=== PATIENT | female | born 1995 | race Caucasian/White ===

== ENCOUNTER 2016-08-30 11:22 | Day surgery (SDC) | payer OTHER ==
[2016-08-25 12:15] LABS: ADD UMIC YES; URINE BILIRUBIN (Dip) NEGATIVE (NEGATIVE); URINE BLOOD (Dip) TRACE (NEGATIVE); URINE COLOR LT. YELLOW (YELLOW); URINE GLUCOSE (Dip) NEGATIVE (NEGATIVE); URINE KETONES (Dip) NEGATIVE (NEGATIVE); URINE LEUKOCYTE ESTERASE (Dip) NEGATIVE (NEGATIVE); URINE NITRITE (Dip) NEGATIVE (NEGATIVE); URINE TOTAL PROTEIN (Dip) NEGATIVE (NEGATIVE); URINE UROBILINOGEN (Dip) 0.2 E.U./dL (0.1-1.0)
[2016-08-25 12:19] LABS: BASOPHILS % 0.7 % (0.0-2.0); EOSINOPHILS # 0.2 10^3/ul (0.0-0.5); EOSINOPHILS % 2.1 % (0.0-7.0); HEMATOCRIT 40.9 % (37.0-47.0); HEMOGLOBIN 13.5 g/dl (12.0-16.0); LYMPHOCYTES # 2.4 10^3/ul (0.8-2.9); LYMPHOCYTES % 32.4 % (15.0-51.0); MEAN CORPUSCULAR HEMOGLOBIN 27.9 pg (29.0-33.0); MEAN CORPUSCULAR HGB CONC 33.1 g/dl (32.0-37.0); MEAN CORPUSCULAR VOLUME 84.3 fl (82.0-101.0); MEAN PLATELET VOLUME 7.7 fl (7.4-10.4); MONOCYTE # 0.6 10^3/ul (0.3-0.9); MONOCYTES % 7.4 % (0.0-11.0); NEUTROPHIL # 4.3 10^3/ul (1.6-7.5); NEUTROPHILS % 57.4 % (39.0-77.0); PLATELET COUNT 337 10^3/UL (140-440); RED BLOOD COUNT 4.85 10^6/ul (4.20-5.40); RED CELL DISTRIBUTION WIDTH 12.2 % (11.5-14.5); UNCORRECTED WBC 7.4 10^3/ul (4.8-10.8); WHITE BLOOD COUNT 7.4 10^3/ul (4.8-10.8)
[2016-08-25 12:23] LABS: CONDITION 1
[2016-08-25 12:27] LABS: ALBUMIN 4.1 g/dl (3.3-4.9); BACTERIA,URINE RARE; URINE RBCS 0-2 /HPF (0)
[2016-08-25 12:29] LABS: INR 0.91; PROTIME 12.3 Sec (12.2-14.2)
[2016-08-25 12:30] LABS: ALBUMIN/GLOBULIN RATIO 1.17; BILIRUBIN,INDIRECT 0.5 mg/dl (0-1.1); BILIRUBIN,TOTAL 0.5 mg/dl (0.2-1.3); PARTIAL THROMBOPLASTIN TIME 28.1 Sec (25.0-35.0); TOTAL PROTEIN 7.6 g/dl (6.1-8.1)
[2016-08-25 12:31] LABS: POTASSIUM 3.5 mmol/L (3.5-5.1)
[2016-08-25 12:32] LABS: CALCIUM 9.2 mg/dl (8.4-10.2); CREATININE 0.56 mg/dl (0.44-1.00)
[2016-08-29 10:34] VITALS: BMI 30.4
[2016-08-30] VITALS (8 sets, daily range): BP systolic 96–123; BP diastolic 51–87; PULSE 78–88; RESP 14–18; Ht 157.5 cm; Wt 70.0 kg
[~2016-08-30] VITALS: Ht 157.5 cm; Wt 70.0 kg
[~2016-08-30 11:22] MED LIST: CEFAZOLIN 1 GM INJ ONE; IBUP-725; LACTATED RINGER'S 1,000 ML IV SCH
[2016-08-30 12:17] LABS: BASOPHILS % 0.6 % (0.0-2.0); EOSINOPHILS # 0.2 10^3/ul (0.0-0.5); EOSINOPHILS % 3.3 % (0.0-7.0); HEMATOCRIT 40.1 % (37.0-47.0); HEMOGLOBIN 13.4 g/dl (12.0-16.0); LYMPHOCYTES # 2.3 10^3/ul (0.8-2.9); LYMPHOCYTES % 34.6 % (15.0-51.0); MEAN CORPUSCULAR HEMOGLOBIN 27.9 pg (29.0-33.0); MEAN CORPUSCULAR HGB CONC 33.3 g/dl (32.0-37.0); MEAN CORPUSCULAR VOLUME 83.8 fl (82.0-101.0); MEAN PLATELET VOLUME 7.6 fl (7.4-10.4); MONOCYTE # 0.5 10^3/ul (0.3-0.9); NEUTROPHIL # 3.6 10^3/ul (1.6-7.5); NEUTROPHILS % 54.5 % (39.0-77.0); PLATELET COUNT 336 10^3/UL (140-440); RED BLOOD COUNT 4.79 10^6/ul (4.20-5.40); RED CELL DISTRIBUTION WIDTH 12.9 % (11.5-14.5); UNCORRECTED WBC 6.6 10^3/ul (4.8-10.8); WHITE BLOOD COUNT 6.6 10^3/ul (4.8-10.8)
[2016-08-30 12:32] LABS: CONDITION 1
[2016-08-30] MEDS ORDERED: LIDOCAINE 2% (SDV) 5 ML INJ ONE (12:50)
[2016-08-30] MEDS ORDERED: PROPOFOL 40 ML ONE (12:50)
[2016-08-30] MEDS ORDERED: FENTAnyl 50 MCG/ML VIAL ONE ×2 (12:51→13:13)
[2016-08-30] MEDS ORDERED: MIDAZOLAM 1 MG/ML 2 ML INJ ONE (12:51)
[2016-08-30] MEDS ORDERED: DEXAMETHASONE 4 MG/ML 1 ML INJ ONE (12:54)
[2016-08-30] MEDS ORDERED: ONDANSETRON 4 MG INJ ONE (12:55)
[2016-08-30] MEDS ORDERED: KETOROLAC 30 MG INJ ONE (13:37)
--- NOTE | 2016-08-30 13:44 | PD.PPDC ---
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
[2016-08-30] MEDS ORDERED: hydrALAzine 20 MG INJ IV PRN (14:00)
[2016-08-30] MEDS ORDERED: ONDANSETRON 4 MG INJ IV PRN (14:00)
[2016-08-30] MEDS ORDERED: LABETALOL HCL 20MG INJ IV PRN (14:00)
[2016-08-30] MEDS ORDERED: OXYCODONE/ACETAMINOPHEN (5/325) TAB PO PRN ×2 (14:00)
[2016-08-30] MEDS ORDERED: FENTAnyl 50 MCG/ML VIAL IV PRN ×3 (14:00)
[2016-08-30] MEDS ORDERED: MEPERIDINE 25 MG INJ IV PRN (14:00)
--- NOTE | 2016-08-30 15:06 | OPR ---
DATE OF OPERATION: 08/30/2016 PREOPERATIVE DIAGNOSES: Vaginal wall cyst (right side), approximately 3 x 4 cm. POSTOPERATIVE DIAGNOSES: Vaginal wall cyst (right side), approximately 3 x 4 cm. PROCEDURE: Excision of the right vaginal wall cyst. SURGEON: Ledy Pindea MD ANESTHESIA: General. ANESTHESIOLOGIST: Dr. Ervin DETAILS OF THE PROCEDURE: Under satisfactory general anesthesia, the patient was prepped and draped and placed in dorsal lithotomy position. Bimanual pelvic exam normal marital introitus. Vagina wa s containing a cyst approximately 3 x 4 cm which the tip of the cyst was protruding through the vagi nal entrance, and the root of the cyst was very close to the right fornix next to the cervix. The b kelsey of the cyst grasped by Dar, and the cyst was completely excised from the vaginal wall and se nt for the pathology. The bed of the cyst was repaired with 2-0 Vicryl continuous suture. There wa s no bleeding from the site of the surgery. The patient tolerated procedure well and transferred to recovery room in good condition. Dictated By: LEDY CUNHA/NTS Conf#: [id number] DID#: [id number]
== END 2016-08-30 16:05 | disposition home or self-care (01) ==
LOC: SDS 11:22
PROVIDERS: ATTEND Obstetrics & Gynecology
DX: Q52.4 Other congenital malformations of vagina (principal)
CPT/HCPCS: 57135; 80053; 81001; 85025; 85610; 85730; 86850; 86900; 86901; 88305; J0690; J1100; J2250; J2405; J3010; Z7512; Z7610; 81003; J1885

== ENCOUNTER 2017-01-12 07:21 | Emergency (ER) | payer OTHER ==
[~2017-01-12] VITALS: Ht 154.9 cm; Wt 77.0 kg
[2017-01-12 07:23] VITALS: Ht 154.9 cm; Wt 77.0 kg
[2017-01-12] MEDS ORDERED: KETOROLAC 30 MG INJ IM STA (07:44)
[2017-01-12] MEDS ORDERED: DIAZEPAM 5 MG TAB PO ONE (08:00)
[2017-01-12] MEDS ORDERED: NAPR-260 PO (08:26)
[2017-01-12] MEDS ORDERED: CYCL-319 PO (08:26)
--- NOTE | 2017-01-12 08:41 | RADRPT ---
PROCEDURE: XR Lumbar Spine, 3 views. CLINICAL INDICATION: back pain TECHNIQUE: AP, lateral and cone-down lateral view of the lumbar spine were obtained. COMPARISON: No prior studies are available for comparison. FINDINGS: There is normal vertebral mineralization. There is straightening of lumbar lordosis.. No fracture or subluxation is seen. The disc spaces are normal in appearance. The posterior elements are unremarkable. The soft tissues appear normal. RPTAT: AA IMPRESSION: Straightening of lumbar lordosis. Physician Jovanna Date Time Electronically viewed and signed by Fernando Newberry Physician on 01/12/2017 08:40 RA/
--- NOTE | 2017-01-12 08:53 | ERD ---
ER Documentation Chief Complaint Date/Time DATE: 01/12/17 TIME: 08:51 Chief Complaint lower back pain x 2weeks got worse today HPI This is a 21-year-old female presenting to the emergency department complaining of lower back pain for the past 2 weeks which has worsened today. Patient rates the pain constant, severe with certain movements. Patient states that she has tried ibuprofen however it does not give her any relief, states that her last dose was about a week ago. Patient denies any saddle anesthesia, bladder or bowel incontinence. Denies urinary symptoms or hematuria ROS All systems reviewed and are negative except as per history of present illness. Medications Home Meds Active Scripts Cyclobenzaprine Hcl* (Cyclobenzaprine Hcl*) 10 Mg Tablet, 10 MG PO TID, #20 TAB Prov:DOUGLAS MARCUM PA-C 01/12/17 Naproxen* (Naprosyn*) 500 Mg Tablet, 500 MG PO BID Y for PAIN AND/OR INFLAMMATION, #30 TAB Prov:DOUGLAS MARCUM PA-C 01/12/17 Allergies Allergies: Coded Allergies: No Known Drug Allergies (Verified Allergy, Mild, 08/30/16) PMhx/Soc Medical and Surgical Hx: pt denies Surgical Hx History of Surgery: No Anesthesia Reaction: No Hx Neurological Disorder: No Hx Respiratory Disorders: No Hx Cardiac Disorders: No Hx Psychiatric Problems: No Hx Miscellaneous Medical Probl: Yes (lower back pain) Hx Alcohol Use: No Hx Substance Use: No Hx Tobacco Use: No Physical Exam Vitals Vital Signs Date Time Temp Pulse Resp B/P Pulse Ox O2 Delivery O2 Flow Rate FiO2 01/12/17 07:23 98.9 96 19 160/93 99 Physical Exam GENERAL: WD/WN, in no apparent distress, non-toxic appearing HENT: NC/AT EYES: Conjunctiva normal NECK: Supple PULM: Normal labored breathing CV: Good capillary refill GI: Non-distended, no guarding BACK: no deformities noted, normal spinal curvature, TTP on lumbar region, tender on spine midline, EXT: No clubbing, cyanosis, or edema NEURO: Moves on all fours, sensation intact, normal gait SKIN: intact PSYCH: Normal mood GENERAL: WD/WN, in no apparent distress, non-toxic appearing HENT: NC/AT EYES: Conjunctiva normal NECK: Supple PULM: Normal labored breathing CV: Good capillary refill GI: Non-distended, no guarding BACK: no deformities noted, normal spinal curvature, TTP on lumbar region, non- tender on spine midline, normal anal wink, [] straight leg raise EXT: No clubbing, cyanosis, or edema NEURO: Moves on all fours, sensation intact, normal gait SKIN: intact PSYCH: Normal mood Results 24 hrs Current Medications Medications (Trade) Dose Ordered Sig/Sheryl Route PRN Reason Start Time Stop Time Status Last Admin Dose Admin Diazepam (Valium) 5 mg ONCE ONCE PO 01/12/17 08:00 01/12/17 08:01 DC 01/12/17 08:01 Ketorolac Tromethamine (Toradol) 30 mg ONCE STAT IM 01/12/17 07:44 01/12/17 07:46 DC 01/12/17 08:02 Procedures/MDM 21-year-old female presents to the ER with lumbar back pain and muscle spasms, low suspicion for spinal abscess, vertebral fracture, cauda equina syndrome, spinal stenosis due to physical examination. Lumbar XRAY: Straightening of lumbar lordosis. This appears to be a postural issue and I believe the patient will really benefit from outpatient physical therapy. I discussed with her to follow-up with her primary care physician to get a referral for physical therapy. In the ED patient was given Toradol and Valium with some relief. Patient is neurovascularly intact and hematocele for discharge for home. Prescriptions naproxen and Flexeril was given to patient, discussed to return to the ED if not improving as expected or follow-up with a primary care physician. Patient understood and agreed with this plan. Departure Diagnosis: Primary Impression: Back pain Back pain location: low back pain Chronicity: acute Back pain laterality: midline Sciatica presence: without sciatica Qualified Code: M54.5 - Acute midline low back pain without sciatica Condition: Stable Patient Instructions: Back Pain (Acute Or Chronic), Muscle Spasm Referrals: [facility] (PCP) Additional Instructions: FOLLOW UP WITH YOUR PRIMARY CARE PHYSICIAN TOMORROW.Return to this facility if you are not improving as expected. Ask for referral for physical therapy and orthopedist if pain continues Take all medicines as directed. You have been given a medicine which may cause drowsiness.DO NOT DRIVE OR OPERATE DANGEROUS MACHINERY while taking this medicine! Return to this facility if you are not improving as expected. DOUGLAS MARCUM PA-C Jan 12, 2017 08:53
== END 2017-01-12 09:05 | disposition home or self-care (01) ==
LOC: FTE 07:21
DX: M54.5 Low back pain (principal)
CPT/HCPCS: 72100; 96372; J1885; Z7502; Z7610